=== PATIENT | female | born 1970 | race Caucasian/White ===

== ENCOUNTER → 2021-01-28 12:04 | Outpatient (BNVA) | payer OTHER, SELFPAY | PROVIDERS: PCP Nurse Practitioner; Visit Provider Nurse Practitioner Family | DX: Z20.822 Contact with and (suspected) exposure to COVID-19 (principal) | CPT/HCPCS: 87635 ==

== ENCOUNTER 2021-02-17 17:48 | Emergency (ER) | payer SELFPAY ==
[2021-02-17 18:51] VITALS: BP 165/86; PULSE 78; RESP 18; TEMP 36.9; O2SAT 100; BMI 21.4
--- NOTE | 2021-02-17 19:29 | ED_ITS ---
HPI - Wound/Laceration General: Chief Complaint: Wound/Laceration Stated Complaint: BLADE LAC TO LUE Time Seen by Provider: 02/17/21 19:28 History of Present Illness: HPI narrative: 50-year-old female comes in today with complaints of injury to the left hand. Patient reports her was swinging a sort of wound and accidentally struck her in the left hand. Patient denies that this was intentional and states it was an accident. Patient is alert oriented and does not appear distressed. Patient cannot recall her last tetanus shot. Patient has good range of motion of the hand. Review of Systems 2 General: Reports: 10 or more systems reviewed and unremarkable except in HPI and below Skin/Breast: Reports: other (laceration hand) [facility] ED PFSH: Social History Smoking and tobacco status: current every day smoker Physical Exam Const: COMMON NORMALS: no acute distress and patient oriented x3 GENERAL APPEARANCE: cooperative HENMT: COMMON NORMALS: normocephalic and Normal external nose present HEAD & SCALP: normal to inspection and normocephalic NOSE: Normal external nose present Eye: GENERAL EYE: appearance normal, both eyes and all related structures Neck/C-Spine: COMMON NORMALS: full ROM Chest: COMMONS NORMALS: normal inspection of the chest Resp: COMMON NORMALS: normal respiratory effort EFFORT & INSPECTION: Yes able to speak in complete sentences Cardio: COMMON NORMALS: regular rate and regular rhythm RATE: regular rate RHYTHM: regular rhythm GI: COMMON NORMALS: non-tender Extremity: COMMON NORMALS: normal to inspection Neuro: COMMON NORMALS: patient oriented x3 and moves all extremities Psych: COMMON NORMALS: mental status grossly normal and cooperative Skin: NARRATIVE SKIN EXAM: 4 cm laceration to the ulnar left hand. It extends outside of the hand across the palmar aspect of the fifth digit. Does not affect the fingers. Patient has good range of motion. No foreign body or fracture is noted. Procedures Laceration Laceration 1: Site: hand Side (If applicable): left Size (cm): 4 Description: linear Depth: simple, single layer Local Anesthetic: lidocaine 1% and with epi Amount of anesthesia used (mL): 5 Pre-repair: wound explored and irrigated extensively Skin layer closed with: nylon Size (cm): 4-0 Number of sutures: 9 Course Vital Signs: Vital signs: Vital Signs Temperature 98.4 F 02/17/21 18:51 Pulse Rate 78 02/17/21 18:51 Respiratory Rate 18 02/17/21 18:51 Blood Pressure 165/86 02/17/21 18:51 Pulse Oximetry 100 02/17/21 18:51 MDM - Wound/Laceration MDM Narrative: Medical decision making narrative: 50-year-old female comes in with laceration to the left hand. 4 cm laceration is noted. Patient has good range of motion of the hand. No tendon injury is noted. No foreign body is noted. Differential diagnosis includes but not limited to fracture, laceration, need for prophylaxis tetanus. X-ray noted no fracture. Wound was repaired with sutures. Patient tolerated well. We will cover patient with some cephalexin for prophylaxis therapy against infection. Patient's tetanus shot was updated. Patient was given 1 hydrocodone for breakthrough pain. Discharge Plan Discharge Patient Disposition: Home Clinical Impression: Laceration of hand Qualifiers: Encounter type: initial encounter Foreign body presence: without foreign body Laterality: left Qualified Code(s): S61.412A - Laceration without foreign body of left hand, initial encounter Condition: Stable Prescriptions: New cephalexin 500 mg capsule 500 mg PO BID 7 Days Qty: 14 RF: 0 Discharge Orders: Discharge ED (Routine); Ordered 02/17/21 Ordered By: Steven Beltre Discharge Diet: Usual diet Discharge Activity: Increase activity as tolerated Patient Instructions: Laceration (ED), Opioid Safety Activity Restrictions/Additional Instructions: Keep wound clean and dry. It is important to keep the wound as dry as possible especially for the next 2 days. After that try not to keep wound submerged under water for long periods of time. Try to keep as dry as possible. Sutures need to come out in 7 to 10 days. Take antibiotic as directed. Follow-up with primary care for further instruction. Return to the ER for new concerns or worsening symptoms. Stand Alone Forms: Work/School Release Coding Level of Care Code ED [employer] for [employer]
--- NOTE | 2021-02-17 19:43 | XRR_ITS ---
PROCEDURE INFORMATION: Exam: XR Left Hand Exam date and time: 02/17/2021 7:43 PM Age: 50 years old Clinical indication: Injury or trauma; Other: Laceration; Hand; Left; Additional info: Injury slicedpalm of lt hand TECHNIQUE: Imaging protocol: XR Left hand. Views: 3 or more views. COMPARISON: No relevant prior studies available. FINDINGS: Bones/joints: Osseous structures are intact without fracture. The joint spaces are preserved. Soft tissues: Laceration noted adjacent to the 5th digit. No radiopaque foreign body is seen. XR/XR hand LT min 3V* [id number] IMPRESSION: No acute osseous abnormalities of the left hand.
[2021-02-17] MEDS: HYDROcodone-acetaminophen 5-325 mg Tablet 1 TAB PO (20:18)
[2021-02-17] MEDS: tetanus-dipt-pertussis 0.5 mL SDV IM (20:18)
== END 2021-02-17 20:35 | disposition home or self-care (01) ==
PROVIDERS: Emergency Provider Nurse Practitioner Family
DX: S61.412A Laceration without foreign body of left hand, initial encounter (principal); F17.210 Nicotine dependence, cigarettes, uncomplicated; W20.8XXA Other cause of strike by thrown, projected or falling object, initial encounter; Z23 Encounter for immunization
CPT/HCPCS: 12002; 73130; 90471; 90715; 99283